=== PATIENT | male | born 1950 | race Caucasian/White ===

== ENCOUNTER → 2016-09-01 | Outpatient (CLI) | payer OTHER | END | disposition home or self-care (01) | DX: R26.2 Difficulty in walking, not elsewhere classified (principal); M62.81 Muscle weakness (generalized); M25.561 Pain in right knee; M25.661 Stiffness of right knee, not elsewhere classified | CPT/HCPCS: 97110 GP; 97150 GO; 97161 GP; 97165 GO; G8978 GP; G8979 GP; G8980 GP; G8987 GO; G8988 GO; G8989 GO ==

== ENCOUNTER 2016-10-05 06:41 | Inpatient (IN) | payer OTHER, MEDICARE ==
[~2016-10-05] VITALS: Ht 185.4 cm; Wt 100.1 kg
[~2016-10-05 06:41] MED LIST: CELEBREX100 MG PO; COREG6.25 M1 PO; IRON325 MG PO; LISINOPRIL5 MG PO; SYNTHROID25 MCG PO; TYLENOL WITH C1 EACH PO; XARELTO20 MG PO; ZOLOFT100 MG PO; ZYLOPRIM300 MG PO
[2016-10-05 12:12] LABS: HEMATOCRIT 35.4 % (38.0-50.0); MCH 31.1 PG (29.0-34.0); MCHC 33.6 G/DL (30.0-36.0); MCV 92.4 FL (86-99); MEAN PLAT.VOLUME 11.1 uM^3 (9.0-12.4); PLATELET COUNT 185 K/uL (156-360); RBC DIS.WIDTH-CV 14.6 % (11.8-14.6); RBC DIS.WIDTH-SD 49.6 % (39-53); RED BLOOD COUNT 3.83 M/uL (4.00-5.50); WHITE BLOOD COUNT 6.7 K/uL (4.1-10.2)
[2016-10-05 12:45] VITALS: BP 135/64
[2016-10-05 15:11] VITALS: BP 133/72
[2016-10-05 20:05] VITALS: BP 130/67
[2016-10-06] VITALS: BP 125/56
[2016-10-06 04:30] VITALS: BP 129/59
[2016-10-06 06:13] LABS: HEMATOCRIT 33.9 % (38.0-50.0); MCV 89.2 FL (86-99)
[2016-10-06 06:28] LABS: INTER. NORMALIZED RATIO 1.2; PROTHROMBIN TIME 12.1 (9.2-11.2)
[2016-10-06 06:47] LABS: ANION GAP 7 MEQ/L (2-14); CHLORIDE 101 MEQ/L (99-109); GFR ESTIMATE (CALCULATED) > 59 mL/min/; GLUCOSE 128 mg/dL (70-99); SAMPLE HEMOLYSIS CHECK 0; SAMPLE ICTERIC CHECK 0; SAMPLE LIPEMIA CHECK 0; SODIUM 133 MEQ/L (136-147); UREA NITROGEN (BUN) 19 mg/dL (9-23)
[2016-10-06 08:00] VITALS: BP 128/64
[2016-10-06 11:52] VITALS: BP 131/63
[2016-10-06 15:35] VITALS: BP 129/63
[2016-10-06 19:54] VITALS: BP 109/58
[2016-10-07] VITALS: BP 120/75
[2016-10-07 04:00] VITALS: BP 117/69
[2016-10-07 06:23] LABS: HEMATOCRIT 31.1 % (38.0-50.0); MCV 90.9 FL (86-99)
[2016-10-07 06:26] LABS: INTER. NORMALIZED RATIO 1.5; PROTHROMBIN TIME 15.5 (9.2-11.2)
[2016-10-07 06:45] LABS: ANION GAP 9 MEQ/L (2-14); CHLORIDE 102 MEQ/L (99-109); GFR ESTIMATE (CALCULATED) > 59 mL/min/; GLUCOSE 112 mg/dL (70-99); POTASSIUM 4.1 MEQ/L (3.7-5.4); SAMPLE HEMOLYSIS CHECK 0; SAMPLE ICTERIC CHECK 0; SAMPLE LIPEMIA CHECK 0; SODIUM 134 MEQ/L (136-147); UREA NITROGEN (BUN) 24 mg/dL (9-23)
[2016-10-07 08:11] VITALS: BP 113/54
[2016-10-07] MEDS ORDERED: SENNA PLUS TAB1 EACH PO (08:32)
[2016-10-07] MEDS ORDERED: ENDOCET 5-3251 EACH PO (08:32)
[2016-10-07] MEDS ORDERED: WARFARIN SODIUM4 MG PO (08:34)
[2016-10-07 12:21] VITALS: BP 104/60
== END 2016-10-07 14:55 | DRG 470 ==
LOC: 2SOUTH 06:41 → 3WEST 12:38 → 2SOUTH 14:12 → 3WEST 10-07 14:55
PROVIDERS: Orthopaedic Surgery; Physician Assistant
PROC: 0SRC0J9 Replacement of Right Knee Joint with Synthetic Substitute, Cemented, Open Approach (ICD-10-PCS; principal; 2016-10-05)
DX: M17.11 Unilateral primary osteoarthritis, right knee (principal); I48.91 Unspecified atrial fibrillation; I10 Essential (primary) hypertension; E78.2 Mixed hyperlipidemia; I42.9 Cardiomyopathy, unspecified; M10.9 Gout, unspecified; E03.9 Hypothyroidism, unspecified; G47.33 Obstructive sleep apnea (adult) (pediatric); F41.9 Anxiety disorder, unspecified; Z79.01 Long term (current) use of anticoagulants
CPT/HCPCS: 73560; 80048; 85014; 85018; 85027; 85610; C1713; J0690; J1170; J2250; J7050

== ENCOUNTER 2016-10-12 15:12 | Emergency (ER) | payer OTHER, MEDICARE ==
[~2016-10-12] VITALS: Ht 182.9 cm; Wt 102.0 kg
[~2016-10-12 15:12] MED LIST changes: +ENDOCET 5-3251 EACH PO; +SENNA PLUS TAB1 EACH PO; +WARFARIN SODIUM4 MG PO
[2016-10-12 16:29] LABS: HEMATOCRIT 29.3 % (38.0-50.0); MCHC 33.1 G/DL (30.0-36.0); MCV 90.7 FL (86-99); MEAN PLAT.VOLUME 10.3 uM^3 (9.0-12.4); RBC DIS.WIDTH-CV 14.6 % (11.8-14.6); RBC DIS.WIDTH-SD 49.1 % (39-53); RED BLOOD COUNT 3.23 M/uL (4.00-5.50); WHITE BLOOD COUNT 7.3 K/uL (4.1-10.2)
[2016-10-12 16:32] LABS: CHLORIDE 106 mEq/L (99-109); POTASSIUM 4.3 mEq/L (3.7-5.4); SODIUM 137 mEq/L (136-147)
[2016-10-12 16:34] LABS: GLUCOSE 119 mg/dL (70-99); PLATELET COUNT 297 K/uL (156-360)
[2016-10-12 16:35] LABS: ANION GAP 9 MEQ/L (2-14)
[2016-10-12 16:36] LABS: PROTHROMBIN TIME 64.9 (9.2-11.2)
[2016-10-12 16:38] LABS: GFR ESTIMATE (CALCULATED) 54 mL/min/
[2016-10-12 16:39] LABS: UREA NITROGEN (BUN) 32 mg/dL (9-23)
[2016-10-12 16:47] LABS: PTT 55.9 (25-32)
[2016-10-12] MEDS ORDERED: PROAIR HFA8.5 GM IH (18:14)
[2016-10-12 19:20] VITALS: BP 129/67
== END 2016-10-12 19:21 | disposition home or self-care (01) ==
LOC: EME 15:12
PROVIDERS: Nurse Practitioner Family
DX: J44.9 Chronic obstructive pulmonary disease, unspecified (principal); I10 Essential (primary) hypertension; Z79.01 Long term (current) use of anticoagulants; Z96.659 Presence of unspecified artificial knee joint
CPT/HCPCS: 71020; 71275; 80048; 85027; 85610; 85730; 93005; 99281; 99284; J7030